=== PATIENT | female | born 2000 | race Caucasian/White ===

== ENCOUNTER 2021-02-03 17:23 | Emergency (ER) | payer OTHER ==
[~2021-02-03] VITALS: Ht 177.8 cm; Wt 65.9 kg
[2021-02-03 20:07] VITALS: BP 124/81; PULSE 75; TEMP 97.9
== END 2021-02-03 20:07 | disposition home or self-care (01) ==
LOC: COL.ER 17:23
DX: S61.012A Laceration without foreign body of left thumb without damage to nail, initial encounter (principal); W26.0XXA Contact with knife, initial encounter; Y99.0 Civilian activity done for income or pay